=== PATIENT | female | born 2000 | race Caucasian/White ===

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

== ENCOUNTER 2019-07-10 18:43 | Inpatient (IN) | payer OTHER, MEDICAID ==
[2019-07-10] MEDS ORDERED: Lactated Ringers 1,000 ML IV ONE (20:03)
[2019-07-10] MEDS ORDERED: Carboprost Tromethamine 250 MCG/1 ML Amp IM PRN (20:03)
[2019-07-10] MEDS ORDERED: Methylergonovine 0.2 MG/1 ML Amp IM PRN (20:03)
[2019-07-10] MEDS ORDERED: Ondansetron 4 MG/2 ML SDV IVPUSH PRN (20:03)
[2019-07-10] MEDS ORDERED: Lidocaine 1% 30 ML SDV INJECT PRN (20:03)
[2019-07-10] MEDS ORDERED: Sodium Chloride 0.9% 10 ML Syringe FLUSH PRN (20:03)
[2019-07-10] MEDS ORDERED: Misoprostol 400 MCG (4 X 100 MCG TAB) RECTAL PRN (20:03)
[2019-07-10] MEDS ORDERED: Tranexamic Acid 1,000 MG in Sodium Chloride 0.9% 100 ML IV PRN (20:03)
[2019-07-10] MEDS ORDERED: Oxytocin/Normal Saline 30 UNIT/500 ML BAG IV SCH (20:15)
[2019-07-10] MEDS: Lactated Ringers 1,000 ML IV SCH ×3 (20:25→21:38)
[2019-07-10] MEDS ORDERED: fentaNYL 100 MCG/2 ML SDV ONE (20:39)
[2019-07-10] MEDS ORDERED: EPINEPHrine 1 MG/1 ML Amp ONE (20:40)
[2019-07-10] MEDS ORDERED: Sodium Bicarbonate 4.2% 2.5 MEQ/5 ML SDV ONE (20:40)
--- NOTE | 2019-07-10 20:43 | PCM.LDHP ---
L&D History of Present Illness - General Date of Service: 07/10/19 (Admit H&P) Admit Problem/Dx: Patient Status Order with Admit Dx/Problem 07/10/19 20:03 Patient Status [ADT] Routine Admission Diagnosis/Problem Admission Diagnosis/Problem Labor established 07/10/19 21:20 Yuliet is a delightful 18yo WF @ 38w2d who presents tonight is labor. Has been ulises on and off since I saw her in the clinic Sunday, and now the contractions are getting much more intense and closer together. Has had some spotting, bloody show, but no heavy bleeding. no LOF, only some vaginal mucousy discharge as usual. headache yesterday, resolved. No other pre-Eclampsia sx. no other concerns. baby active today. see episode for details. Source of Information: Patient, Family, Old Records, Provider, RN, RN Notes Reviewed, Significant Other, Other (EPIC records/ notes, episode) History Limitations: Reports: No Limitations - History of Present Illness Introduction:: as above. 18yo @ 38w2d in active labor on admit. BOWI. Baby active. prior vaginal delivery at 40w2d. Timing/Duration: Reports: minutes: (2-3, irregular yet), gradual onset, getting worse Location, : Reports: Uterus Severity: Moderate Associated Symptoms: Reports: vaginal bleeding (spotting/bloody show only), vaginal discharge - Related Data Allergies/Adverse Reactions: Allergies Allergy/AdvReac Type Severity Reaction Status Date / Time No Known Allergies Allergy Verified 07/10/19 20:17 Home Medications: Home Meds No.116/Iron/Folic/Dha [Expecta Combo Pack] 1 tab PO DAILY [History] Ferrous Sulfate 325 mg PO DAILY 07/10/19 [History] Past Medical History HEENT History: Reports: None Cardiovascular History: Reports: None Respiratory History: Reports: None Gastrointestinal History: Reports: None Genitourinary History: Reports: None SUPERVISING BAILIFF History: Reports: : 2 Para: 1 LMP (Approximate): Other OB/BYN History: prior vaginal delivery @ 40w2d Musculoskeletal History: Reports: Other (See Below) Other Musculoskeletal History: "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 Neurological History: Reports: None Psychiatric History: Reports: Anxiety, Depression, Other (See Below) Other Psychiatric History: has been on Zoloft and Prozac, not currently Endocrine/Metabolic History: Reports: None Hematologic History: Reports: None Immunologic History: Reports: None Oncologic (Cancer) History: Reports: None Dermatologic History: Reports: None - Infectious Disease History Infectious Disease History: Reports: None, Chicken Pox (as a child) - Past Surgical History Head Surgeries/Procedures: Reports: None HEENT Surgical History: Reports: Other (See Below) Other HEENT Surgeries/Procedures: 2017 wisdom teeth Cardiovascular Surgical History: Reports: None GI Surgical History: Reports: None Female Surgical History: Reports: None Musculoskeletal Surgical History: Reports: Other (See Below) (foot surgery) Other Musculoskeletal Surgeries/Procedures:: see above Social & Family History - Family History Family Medical History: Unobtainable (adopted) - Caffeine Use Caffeine Use: Reports: Soda - Alcohol Use Alcohol Use History: No Alcohol Use Comment: denies ETOH use - Recreational Drug Use Recreational Drug Use: No Recreational Drug Use Comment: denies use - Sexual History Sexual History: Reports: Barrier Contraceptives, Sexually Active Other Sexual History Comment: new partner/FOB with this . STD testing negative - Living Situation & Occupation Living situation: Reports: with Family Social History Comment: lives with adoptive parents and daughter Malgorzata. FOB for this is Erick Montiel. Involved. Here with her. H&P Review of Systems - Review of Systems: Review Of Systems: Comprehensive ROS is negative, except as noted in HPI. L&D Exam - Exam Exam: See Below - OB Specific Fundal Height In cm: 40 Movement: Active Heart Tones: Present Heart Tones per Min: 135 Heart Rate (FHR) Variability: Moderate (6-25 bmp) Presentation: Left Occiput Posterior (LOP) Estimated Weight: 8lb +/- 1/2# - Rico Score Rico Score Cervix Position: Midposition Rico Score Consistency: Soft Rico Score Effacement: >80% Rico Score Dilation: > 5 cm Rico Score Infant's Station: -1 ,0 Rico Score Total: 11 - Exam General: Alert, Oriented HEENT: Conjunctiva Clear, EOMI, Hearing Intact, Mucosa Moist & [place], Nares Patent, Pupils Equal, Pupils Reactive Neck: Supple Lungs: Clear to Auscultation, Normal Respiratory Effort Cardiovascular: Regular Rate, Regular Rhythm GI/Abdominal Exam: Normal Bowel Sounds, Soft, Non-Tender, Pelvis Stable, Distended, Mass Rectal Exam: Normal Exam Genitourinary: Normal external exam, Normal bimanual exam, Cervical dilitation ( 9cm, BBOWI, AROM carried out), Cervical fluid (AROM, large amount clear fluid), Enlarged uterus Back Exam: Normal Inspection, Full Range of Motion Extremities: Normal Inspection, Normal Range of Motion, Non-Tender, No Pedal Edema, Normal Capillary Refill Skin: Warm, Dry, Intact Neurological: Normal Speech, Normal Tone Psychiatric: Alert, Normal Affect, Normal Mood - Patient Data Lab Results Last 24 hrs: Laboratory Results - last 24 hr 07/10/19 Range/Units 19:30 WBC 10.5 H (5.0-10.0) 10^3/uL RBC 4.39 (4.2-5.4) 10^6/uL Hgb 12.3 (12.0-16.0) g/dL Hct 37.4 (37.0-47.0) % MCV 85.2 (80-100) fL MCH 28.0 (27.0-34.0) pg MCHC 32.9 L (33.0-35.0) g/dL Plt Count 158 (150-450) 10^3/uL Result Diagrams: 07/10/19 19:30 - Problem List (1) Term SNOMED Code(s): 07312550 ICD Code: Z34.90 - ENCNTR FOR SUPRVSN OF NORMAL , UNSP, UNSP TRIMESTER Status: Acute Current Visit: Yes (2) Spontaneous onset of labor SNOMED Code(s): 92090600 ICD Code: [id number] - Status: Acute Current Visit: Yes (3) Blood type A+ SNOMED Code(s): 827421793 ICD Code: Z67.10 - TYPE A BLOOD, RH POSITIVE Status: Acute Current Visit : Yes (4) Rubella immune SNOMED Code(s): 999165497 ICD Code: Z78.9 - OTHER SPECIFIED HEALTH STATUS Status: Acute Current Visit: Yes (5) Group B Streptococcus not isolated SNOMED Code(s): 213433387 ICD Code: NYY0139 - Status: Acute Current Visit: Yes (6) Bacterial vaginosis in SNOMED Code(s): 455090809009391 ICD Code: O23.599 - INFECTION OTH PRT GENITAL TRACT IN , UNSP TRIMESTER; B96.89 - OTH BACTERIAL AGENTS THE CAUSE OF DISEASES CLASSD ELSWHR Status: Acute Current Visit: Yes Problem List Initiated/Reviewed/Updated: Yes Orders Last 24hrs: Active Orders 24 hr Category Date Time Status Patient Status [ADT] Routine ADT 07/10/19 20:03 Active Communication Order [RC] ASDIRECTED Care 07/10/19 20:03 Active Heart Tones [RC] PER UNIT ROUTINE Care 07/10/19 20:03 Active Notify Provider Vital Signs OB [RC] ASDIRECTED Care 07/10/19 20:03 Active Notify Provider [RC] PRN Care 07/10/19 20:03 Active POC Labs [RC] ASDIRECTED Care 07/10/19 20:03 Active Pump Management, Intrathecal [RC] ASDIRECTED Care 07/10/19 20:08 Active Up ad Linda [RC] ASDIRECTED Care 07/10/19 20:03 Active Vital Signs [RC] PER UNIT ROUTINE Care 07/10/19 20:03 Active Acetaminophen [Tylenol] Med 07/10/19 20:03 Active 650 mg PO Q4H PRN Carboprost Tromethamine [Hemabate DS] Med 07/10/19 20:03 Active 250 mcg IM ASDIRECTED PRN Lactated Ringers [Ringers, Lactated] 1,000 ml Med 07/10/19 20:15 Active IV ASDIRECTED Lactated Ringers [Ringers, Lactated] 1,000 ml Med 07/10/19 20:03 Active IV BOLUS Lidocaine 1% [Xylocaine-MPF 1%] Med 07/10/19 20:03 Active 30 ml INJECT ASDIRECTED PRN Methylergonovine [Methergine] Med 07/10/19 20:03 Active 0.2 mg IM ASDIRECTED PRN Ondansetron [Zofran] Med 07/10/19 20:03 Active 4 mg IVPUSH Q4H PRN Oxytocin/Normal Saline [Pitocin in NS 30 UNIT/500 ML] Med 07/10/19 20:15 Active 30 unit in 500 ml IV TITRATE Sodium Chloride 0.9% [Saline Flush] Med 02/13/20 20:03 Active 10 ml FLUSH ASDIRECTED PRN Tranexamic Acid [Cyklokapron] 1,000 mg Med 07/10/19 20:03 Active Sodium Chloride 0.9% [Normal Saline] 100 ml IV ONETIME miSOPROStoL [Cytotec] Med 07/10/19 20:03 Active 800 mcg RECTAL ASDIRECTED PRN Saline Lock Insert [OM.PC] Routine Oth 07/10/19 20:03 Ordered Resuscitation Status Routine Resus Stat 07/10/19 20:03 Ordered Medication Orders Acetaminophen (Tylenol) 650 mg PO Q4H PRN PRN Reason: Pain (Mild 1-3) and fever Carboprost Tromethamine (Hemabate Ds) 250 mcg IM ASDIRECTED PRN PRN Reason: HEMORRHAGE Lactated Ringer's (Ringers, Lactated) 1,000 mls @ 500 mls/hr IV BOLUS ONE Stop: 07/10/19 22:02 Lactated Ringer's (Ringers, Lactated) 1,000 mls @ 125 mls/hr IV ASDIRECTED MITCHELL Oxytocin/Sodium Chloride (Pitocin In Ns 30 Unit/500 Ml) 30 unit in 500 mls @ 2 mls/hr IV TITRATE MITCHELL; Protocol Tranexamic Acid 1,000 mg/ (Sodium Chloride) 110 mls @ 660 mls/hr IV ONETIME PRN PRN Reason: Bleeding Lidocaine HCl (Xylocaine-Mpf 1%) 30 ml INJECT ASDIRECTED PRN PRN Reason: Perineal Repair Methylergonovine Maleate (Methergine) 0.2 mg IM ASDIRECTED PRN PRN Reason: Hemorrhage Misoprostol (Cytotec) 800 mcg RECTAL ASDIRECTED PRN PRN Reason: Hemorrhage Ondansetron HCl (Zofran) 4 mg IVPUSH Q4H PRN PRN Reason: Nausea/Vomiting Sodium Chloride (Saline Flush) 10 ml FLUSH ASDIRECTED PRN PRN Reason: Keep Vein Open Assessment/Plan Comment:: Assessment" Yuliet is a delightful 18yo @ 38w2d who presents with spontaneous onset of labor. BOWI Blood type A+ Rubella immune GBS negative HX BV during treated X 2 Plan: admit with routine orders and cares planning intrathecal likely AROM when able/ready if no SROM continue to follow closely in labor and monitor status. all questions answered hmb Addendum: 2139: just checked by nursing staff, OB nurse Tabby cervix 9-9 1/2cm dilated. heart tracings reassuring, seeing early decels likely due to head compression. has intrathecal in place with excellent block. will allow her to continue to labor down. set up and ready for anticipated vaginal delivery. suspect this baby is larger than her last. hmb
--- NOTE | 2019-07-10 21:03 | PCM.SN ---
- Free Text/Narrative Note: Intrathecal.Sitting position, sterile prep and drape. 1% lidociane w bicarb for skinwheal to L2 L3 interspace. Introducer, 24 ga pencan x 1.Pos CSf, neg heme, neg parasthesia. 0.1 ml Pf 1:1000 epi, 20 mcg pf sufenta, 30 mcg pf fentanyl, 0.4 ml pf NS and 6 mg of 0.75% pf bupivacaine injected after CSf aspiration. Pt to L lateral position. Procedure time 2039 to 2109
--- NOTE | 2019-07-10 23:18 | PCM.DEL ---
L & D Note - General Info Date of Service: 07/10/19 (Time of Delivery: 2249) Mother's Due Date: 07/22/19 (38w2d) - Delivery Note Labor: Spontaneous, Augmented by ARM Delivery Outcome: Livebirth Delivery Method: Spontaneous Vaginal Delivery-Single Infant Delivery Mode: Spontaneous Presentation: Right Occiput Anterior (DEANDRE) Nuchal Cord: None (but posterio nuchal hand/arm noted. ) Anesthesia Type: Intrathecal Amniotic Fluid Description: Clear Episiotomy Type: None Laceration: 2nd Degree Suture type: Vicryl Suture size: 2-0 Placenta: Intact, Expressed Cord: 3 Vessels Estimated Blood Loss: 200 (minimal blood loss) Resuscitation Needed: No [place]: Suctioned, Bulb Syringe, Stimulated, Warmed, Brant Used Provider: Ambar Benito Score 1 min: 8 Score 5 min: 9 Second Stage Interventions: Reports: Laboring Down, Pushing Effectively, Pushing , McRobert's Position, Pushing, Pulls Own Legs Back Delivery Comments (Free Text/Narrative):: Yuliet had an excellent block with her intrathecal. Was allowed to labor down until complete and +2 station. Pushed effectively and was while pushing in Lencho position. vertex delivered with nuchal hand/arm noted posteriorly resulting in a small posterior midline 2nd degree tear to perineum. ' remainder of the baby delivered without difficulty with strong cry at . dried, stimulated and suctioned and placed on mother's chest for skin to skin contact, bonding and nursing. APGARs 8 & 9 BW 3440g/ 7lb 9oz cord doubly clamped by me,then cut by FOB cord blood obtained. placenta intact, 3VC noted 2nd degree midline lac repaired in standard fashion with excellent results EBL <200cc fundus firm with pitocin infusing per protocol. mom and baby stable, doing well will follow routine nursery and orders and cares. [facility] - General Info Date of Service: 07/10/19 (Delivery time 2249) Functional Status: Reports: Pain Controlled - Review of Systems General: Reports: No Symptoms HEENT: Reports: No Symptoms Pulmonary: Reports: No Symptoms Cardiovascular: Reports: No Symptoms Gastrointestinal: Reports: No Symptoms Genitourinary: Reports: No Symptoms Musculoskeletal: Reports: No Symptoms Skin: Reports: No Symptoms Neurological: Reports: No Symptoms Psychiatric: Reports: No Symptoms - Patient Data Vitals - Most Recent: Last Vital Signs Temp 97.6 F 07/10/19 18:50 Pulse 82 07/10/19 21:25 Resp 16 07/10/19 21:25 BP 93/46 L 07/10/19 21:25 Pulse Ox Weight - Most Recent: 199 lb Lab Results Last 24 Hours: Laboratory Results - last 24 hr 07/10/19 Range/Units 19:30 WBC 10.5 H (5.0-10.0) 10^3/uL RBC 4.39 (4.2-5.4) 10^6/uL Hgb 12.3 (12.0-16.0) g/dL Hct 37.4 (37.0-47.0) % MCV 85.2 (80-100) fL MCH 28.0 (27.0-34.0) pg MCHC 32.9 L (33.0-35.0) g/dL Plt Count 158 (150-450) 10^3/uL Med Orders - Current: Current Medications Acetaminophen (Tylenol) 650 mg PO Q4H PRN PRN Reason: Pain (Mild 1-3) and fever Carboprost Tromethamine (Hemabate Ds) 250 mcg IM ASDIRECTED PRN PRN Reason: HEMORRHAGE Lactated Ringer's (Ringers, Lactated) 1,000 mls @ 125 mls/hr IV ASDIRECTED MITCHELL Last Admin: 07/10/19 21:38 Dose: 125 mls/hr Oxytocin/Sodium Chloride (Pitocin In Ns 30 Unit/500 Ml) 30 unit in 500 mls @ 2 mls/hr IV TITRATE MITCHELL; Protocol Last Titration: 07/10/19 23:07 Dose: 250 mls/hr Tranexamic Acid 1,000 mg/ (Sodium Chloride) 110 mls @ 660 mls/hr IV ONETIME PRN PRN Reason: Bleeding Lidocaine HCl (Xylocaine-Mpf 1%) 30 ml INJECT ASDIRECTED PRN PRN Reason: Perineal Repair Methylergonovine Maleate (Methergine) 0.2 mg IM ASDIRECTED PRN PRN Reason: Hemorrhage Misoprostol (Cytotec) 800 mcg RECTAL ASDIRECTED PRN PRN Reason: Hemorrhage Ondansetron HCl (Zofran) 4 mg IVPUSH Q4H PRN PRN Reason: Nausea/Vomiting Last Admin: 07/10/19 20:39 Dose: 4 mg Sodium Chloride (Saline Flush) 10 ml FLUSH ASDIRECTED PRN PRN Reason: Keep Vein Open Discontinued Medications Epinephrine HCl (Adrenalin) Confirm Administered Dose 1 mg .ROUTE .STK-MED ONE Stop: 07/10/19 20:41 Fentanyl (Sublimaze) Confirm Administered Dose 100 mcg .ROUTE .STK-MED ONE Stop: 07/10/19 20:40 Lactated Ringer's (Ringers, Lactated) 1,000 mls @ 500 mls/hr IV BOLUS ONE Stop: 07/10/19 22:02 Sodium Bicarbonate (Sodium Bicarbonate 4.2%) Confirm Administered Dose 2.5 meq .ROUTE .STK-MED ONE Stop: 07/10/19 20:41 Sufentanil Citrate (Sufenta) Confirm Administered Dose 50 mcg .ROUTE .STK-MED ONE Stop: 07/10/19 20:41 - Exam General: Alert, Oriented HEENT: Pupils Equal, Pupils Reactive, EOMI, Mucous Membr. Moist/[place] Neck: Supple Lungs: Clear to Auscultation, Normal Respiratory Effort Cardiovascular: Regular Rate, Regular Rhythm Back Exam: Normal Inspection, Full Range of Motion Extremities: Normal Inspection, Normal Range of Motion, Non-Tender, No Pedal Edema, Normal Capillary Refill Skin: Warm, Dry, Intact Neurological: No New Focal Deficit, Other (intrathecal in place at this time) Psy/Mental Status: Alert, Normal Affect, Normal Mood - Problem List & Annotations (1) Term SNOMED Code(s): 98438522 Code(s): Z34.90 - ENCNTR FOR SUPRVSN OF NORMAL , UNSP, UNSP TRIMESTER Status: Acute Current Visit: Yes (2) Spontaneous onset of labor SNOMED Code(s): 63617255 Code(s): CCG4827 - Status: Acute Current Visit: Yes (3) Blood type A+ SNOMED Code(s): 313304466 Code(s): Z67.10 - TYPE A BLOOD, RH POSITIVE Status: Acute Current Visit: Yes (4) Rubella immune SNOMED Code(s): 959481273 Code(s): Z78.9 - OTHER SPECIFIED HEALTH STATUS Status: Acute Current Visit: Yes (5) Group B Streptococcus not isolated SNOMED Code(s): 498808715 Code(s): UNB2810 - Status: Acute Current Visit: Yes (6) Bacterial vaginosis in SNOMED Code(s): 543373821776870 Code(s): O23.599 - INFECTION OTH PRT GENITAL TRACT IN , UNSP TRIMESTER; B96.89 - OTH BACTERIAL AGENTS THE CAUSE OF DISEASES CLASSD ELSWHR Status: Acute Current Visit: Yes - Problem List Review Problem List Initiated/Reviewed/Updated: Yes - My Orders Last 24 Hours: My Active Orders 07/10/19 20:03 Patient Status [ADT] Routine Communication Order [RC] ASDIRECTED Heart Tones [RC] PER UNIT ROUTINE Notify Provider Vital Signs OB [RC] ASDIRECTED Notify Provider [RC] PRN POC Labs [RC] ASDIRECTED Up ad Linda [RC] ASDIRECTED Vital Signs [RC] PER UNIT ROUTINE Acetaminophen [Tylenol] 650 mg PO Q4H PRN Carboprost Tromethamine [Hemabate DS] 250 mcg IM ASDIRECTED PRN Lidocaine 1% [Xylocaine-MPF 1%] 30 ml INJECT ASDIRECTED PRN Methylergonovine [Methergine] 0.2 mg IM ASDIRECTED PRN Ondansetron [Zofran] 4 mg IVPUSH Q4H PRN Sodium Chloride 0.9% [Saline Flush] 10 ml FLUSH ASDIRECTED PRN Tranexamic Acid [Cyklokapron] 1,000 mg Sodium Chloride 0.9% [Normal Saline] 100 ml IV ONETIME miSOPROStoL [Cytotec] 800 mcg RECTAL ASDIRECTED PRN Saline Lock Insert [OM.PC] Routine Resuscitation Status Routine 07/10/19 20:15 Lactated Ringers [Ringers, Lactated] 1,000 ml IV ASDIRECTED Oxytocin/Normal Saline [Pitocin in NS 30 UNIT/500 ML] 30 unit in 500 ml IV TITRATE - Plan Plan:: Assessment" Yuliet is a delightful 18yo @ 38w2d who presents with spontaneous onset of labor. BOWI Blood type A+ Rubella immune GBS negative HX BV during treated X 2 Plan: admit with routine orders and cares planning intrathecal likely AROM when able/ready if no SROM continue to follow closely in labor and monitor status. all questions answered hmb Addendum: 2139: just checked by nursing staff, OB nurse Tabby cervix 9-9 1/2cm dilated. heart tracings reassuring, seeing early decels likely due to head compression. has intrathecal in place with excellent block. will allow her to continue to labor down. set up and ready for anticipated vaginal delivery. suspect this baby is larger than her last. hmb DELIVERY: viable male infant by with 2nd degree lac @ 2250 without complications. APGARs 8 & 9 BW 3440g/ 7lb 9oz see notes for details. hmb
[2019-07-10] MEDS ORDERED: Zolpidem 5 MG Tab PO PRN (23:27)
[2019-07-10] MEDS ORDERED: Benzocaine/Menthol 20%-0.5% Spray 56 GM Canister TOP PRN (23:27)
[2019-07-10] MEDS ORDERED: Simethicone 80 MG Tab.Chew PO PRN (23:27)
[2019-07-11] MEDS: Ibuprofen 800 MG Tab PO PRN ×3 (00:09→16:45)
[2019-07-11] MEDS: Acetaminophen 325 MG Tab PO PRN ×5 (00:47→23:41)
[2019-07-11] MEDS: Docusate Sodium 100 MG Cap PO PRN ×2 (08:34→19:34)
[2019-07-11] MEDS: Prenatal Multivitamin with Calcium/Folic Acid/Iron Tab PO SCH (08:34)
[2019-07-11] MEDS ORDERED: FLUoxetine 10 MG Cap PO ONE (21:49)
--- NOTE | 2019-07-11 22:00 | PCM.PNPP ---
- General Info Date of Service: 07/11/19 (PP #1) Admission Dx/Problem (Free Text): vaginal delivery viable male Subjective Update: doing well voiding, eating, ambulating. hasn't had a BM yet. wishes to start her antidepressant again. fluoxetine 20mg daily. decided not to nurse right now. hmb Functional Status: Reports: Pain Controlled - Review of Systems General: Reports: No Symptoms HEENT: Reports: No Symptoms Pulmonary: Reports: No Symptoms Cardiovascular: Reports: No Symptoms Gastrointestinal: Reports: No Symptoms Genitourinary: Reports: No Symptoms Musculoskeletal: Reports: No Symptoms Skin: Reports: No Symptoms Neurological: Reports: No Symptoms Psychiatric: Reports: No Symptoms - General Info Date of Service: 07/11/19 (PPD #1) - Patient Data Vital Signs - Most Recent: Last Vital Signs Temp 98.2 F 07/11/19 09:27 Pulse 92 07/11/19 09:27 Resp 16 07/11/19 09:27 BP 126/70 07/11/19 09:27 Pulse Ox 100 07/11/19 09:27 Weight - Most Recent: 199 lb I&O - Last 24 Hours: Intake & Output 07/11/19 07/11/19 07/11/19 06:59 14:59 22:59 Output Total 250 Balance -250 Med Orders - Current: Current Medications Acetaminophen (Tylenol) 650 mg PO Q4H PRN PRN Reason: Pain (Mild 1-3) and fever Last Admin: 07/11/19 19:34 Dose: 650 mg Benzocaine/Menthol (Dermoplast Pain Relief [place]) 0 gm TOP Q4H PRN PRN Reason: Perineal comfort measures Last Admin: 07/11/19 00:08 Dose: 1 spray Carboprost Tromethamine (Hemabate Ds) 250 mcg IM ASDIRECTED PRN PRN Reason: HEMORRHAGE Docusate Sodium (Colace) 100 mg PO BID PRN PRN Reason: Constipation Last Admin: 07/11/19 19:34 Dose: 100 mg Fluoxetine HCl (Prozac) 20 mg PO DAILY MITCHELL Lactated Ringer's (Ringers, Lactated) 1,000 mls @ 125 mls/hr IV ASDIRECTED MITCHELL Last Admin: 07/10/19 21:38 Dose: 125 mls/hr Oxytocin/Sodium Chloride (Pitocin In Ns 30 Unit/500 Ml) 30 unit in 500 mls @ 2 mls/hr IV TITRATE MITCHELL; Protocol Last Titration: 07/11/19 01:45 Dose: 0 mls/hr Tranexamic Acid 1,000 mg/ (Sodium Chloride) 110 mls @ 660 mls/hr IV ONETIME PRN PRN Reason: Bleeding Ibuprofen (Motrin) 800 mg PO Q8H PRN PRN Reason: Mild Pain or Fever Last Admin: 07/11/19 16:45 Dose: 800 mg Lidocaine HCl (Xylocaine-Mpf 1%) 30 ml INJECT ASDIRECTED PRN PRN Reason: Perineal Repair Methylergonovine Maleate (Methergine) 0.2 mg IM ASDIRECTED PRN PRN Reason: Hemorrhage Misoprostol (Cytotec) 800 mcg RECTAL ASDIRECTED PRN PRN Reason: Hemorrhage Ondansetron HCl (Zofran) 4 mg IVPUSH Q4H PRN PRN Reason: Nausea/Vomiting Last Admin: 07/10/19 20:39 Dose: 4 mg Prenat Multivit/Toco/Iron/Folic Ac ( Plus Iron) 1 each PO DAILY MITCHELL Last Admin: 07/11/19 08:34 Dose: 1 each Simethicone (Simethicone) 80 mg PO Q4H PRN PRN Reason: Gas Sodium Chloride (Saline Flush) 10 ml FLUSH ASDIRECTED PRN PRN Reason: Keep Vein Open Zolpidem Tartrate (Ambien) 5 mg PO BEDTIME PRN PRN Reason: Insomnia Discontinued Medications Epinephrine HCl (Adrenalin) Confirm Administered Dose 1 mg .ROUTE .STK-MED ONE Stop: 07/10/19 20:41 Last Admin: 07/11/19 03:35 Dose: Not Given Fentanyl (Sublimaze) Confirm Administered Dose 100 mcg .ROUTE .STK-MED ONE Stop: 07/10/19 20:40 Last Admin: 07/11/19 03:34 Dose: Not Given Fluoxetine HCl (Prozac) 20 mg PO ONETIME ONE Stop: 07/11/19 21:50 Lactated Ringer's (Ringers, Lactated) 1,000 mls @ 500 mls/hr IV BOLUS ONE Stop: 07/10/19 22:02 Last Admin: 07/11/19 03:34 Dose: Not Given Sodium Bicarbonate (Sodium Bicarbonate 4.2%) Confirm Administered Dose 2.5 meq .ROUTE .STK-MED ONE Stop: 07/10/19 20:41 Last Admin: 07/11/19 03:35 Dose: Not Given Sufentanil Citrate (Sufenta) Confirm Administered Dose 50 mcg .ROUTE .STK-MED ONE Stop: 07/10/19 20:41 Last Admin: 07/11/19 03:35 Dose: Not Given - Interaction Disposition, : Potter at Bedside Interaction: Holding Infant Feeding: Bottle Fed Support Person: Significant Other - Recovery Exam Fundal Tone: Firm Fundal Level: At Umbilicus Fundal Placement: Midline Lochia Amount: Scant, Small Lochia Color: Rubra/Red Perineum Description: Intact, Minimal Bruising/Swelling Other Perinuem Description: left lower labia bruising, no more swelling than rest of the labia Episiotomy/Laceration: Approximated Bladder Status: Nonpalpable Urinary Elimination: Straight Catheterization - Exam General: Alert, Oriented HEENT: Pupils Equal, Pupils Reactive, EOMI Neck: Supple Lungs: Clear to Auscultation, Normal Respiratory Effort Cardiovascular: Regular Rate, Regular Rhythm GI/Abdominal Exam: Normal Bowel Sounds Extremities: Normal Inspection Skin: Warm, Dry, Intact Neurological: No New Focal Deficit Psy/Mental Status: Alert, Normal Affect, Normal Mood - Problem List & Annotations (1) Term SNOMED Code(s): 03124495 Code(s): Z34.90 - ENCNTR FOR SUPRVSN OF NORMAL , UNSP, UNSP TRIMESTER Status: Acute Current Visit: Yes (2) Spontaneous onset of labor SNOMED Code(s): 74757647 Code(s): DBB0538 - Status: Acute Current Visit: Yes (3) Blood type A+ SNOMED Code(s): 714286200 Code(s): Z67.10 - TYPE A BLOOD, RH POSITIVE Status: Acute Current Visit: Yes (4) Rubella immune SNOMED Code(s): 981461357 Code(s): Z78.9 - OTHER SPECIFIED HEALTH STATUS Status: Acute Current Visit: Yes (5) Group B Streptococcus not isolated SNOMED Code(s): 017693023 Code(s): PQG5537 - Status: Acute Current Visit: Yes (6) Bacterial vaginosis in SNOMED Code(s): 349282637108530 Code(s): O23.599 - INFECTION OTH PRT GENITAL TRACT IN , UNSP TRIMESTER; B96.89 - OTH BACTERIAL AGENTS THE CAUSE OF DISEASES CLASSD ELSWHR Status: Acute Current Visit: Yes - Problem List Review Problem List Initiated/Reviewed/Updated: Yes - My Orders Last 24 Hours: My Active Orders 07/10/19 23:00 Insert Urinary Catheter [OM.PC] ONETIME 07/10/19 23:27 Consult to Slot Floor Person [CONS] Routine Benzocaine/Menthol [Dermoplast Pain Relief [place]] See Dose Instructions TOP Q4H PRN Docusate Sodium [Colace] 100 mg PO BID PRN Ibuprofen [Motrin] 800 mg PO Q8H PRN Simethicone 80 mg PO Q4H PRN Zolpidem [Ambien] 5 mg PO BEDTIME PRN Assess Lochia [WOMSER] Per Unit Routine Assess Uterine Involution [WOMSER] Per Unit Routine Breast Pump [WOMSER] Per Unit Routine Ice Therapy [OM.PC] Per Unit Routine Perineal Care [OM.PC] Per Unit Routine Sitz Bath [OM.PC] Per Unit Routine 07/11/19 09:00 Vit with Ca/FA/Iron [ Plus Iron] 1 each PO DAILY 07/11/19 22:00 FLUoxetine [PROzac] 20 mg PO DAILY - Plan Plan:: Assessment" Yuliet is a delightful 18yo @ 38w2d who presents with spontaneous onset of labor. BOWI Blood type A+ Rubella immune GBS negative HX BV during treated X 2 Plan: admit with routine orders and cares planning intrathecal likely AROM when able/ready if no SROM continue to follow closely in labor and monitor status. all questions answered b Addendum: [id number]: just checked by nursing staff, OB nurse Tabby cervix 9-9 1/2cm dilated. heart tracings reassuring, seeing early decels likely due to head compression. has intrathecal in place with excellent block. will allow her to continue to labor down. set up and ready for anticipated vaginal delivery. suspect this baby is larger than her last. [facility] DOS: 07-11-2019 PPD #1 doing well restarted her fluoxetine 20mg daily. had minimal blood loss with delivery, and light flow, so cancelled her hgb for a.m. as admit was >[address] Mcgee see and discharge tomorrow. all questions answered. dangelo
[2019-07-11] MEDS: FLUoxetine 10 MG Cap PO SCH (22:11)
[2019-07-12] MEDS: Ibuprofen 800 MG Tab PO PRN ×2 (00:48→09:16)
[2019-07-12] MEDS: Docusate Sodium 100 MG Cap PO PRN (09:16)
[2019-07-12] MEDS: Prenatal Multivitamin with Calcium/Folic Acid/Iron Tab PO SCH (09:16)
[2019-07-12] MEDS: FLUoxetine 10 MG Cap PO SCH (09:16)
--- NOTE | 2019-07-12 11:32 | PCM.PNPP ---
- General Info Date of Service: 07/12/19 (PPD #2 S/P ) Functional Status: Reports: Pain Controlled, Tolerating Diet, Ambulating, Urinating - Review of Systems General: Reports: No Symptoms HEENT: Reports: No Symptoms Pulmonary: Reports: No Symptoms Cardiovascular: Reports: No Symptoms Gastrointestinal: Reports: No Symptoms Genitourinary: Reports: No Symptoms Musculoskeletal: Reports: No Symptoms Skin: Reports: No Symptoms Neurological: Reports: No Symptoms Psychiatric: Reports: No Symptoms - General Info Date of Service: 07/12/19 (PPD # 2 S/P ) - Patient Data Vital Signs - Most Recent: Last Vital Signs Temp 96.9 F 07/12/19 07:42 Pulse 72 07/12/19 07:42 Resp 16 07/12/19 07:42 BP 106/62 07/12/19 07:42 Pulse Ox 99 07/12/19 07:42 Weight - Most Recent: 199 lb I&O - Last 24 Hours: Intake & Output 07/11/19 07/12/19 07/12/19 22:59 06:59 14:59 Intake Total 1200 Balance 1200 Med Orders - Current: Current Medications Acetaminophen (Tylenol) 650 mg PO Q4H PRN PRN Reason: Pain (Mild 1-3) and fever Last Admin: 07/11/19 23:41 Dose: 650 mg Benzocaine/Menthol (Dermoplast Pain Relief [place]) 0 gm TOP Q4H PRN PRN Reason: Perineal comfort measures Last Admin: 07/11/19 00:08 Dose: 1 spray Carboprost Tromethamine (Hemabate Ds) 250 mcg IM ASDIRECTED PRN PRN Reason: HEMORRHAGE Docusate Sodium (Colace) 100 mg PO BID PRN PRN Reason: Constipation Last Admin: 07/12/19 09:16 Dose: 100 mg Fluoxetine HCl (Prozac) 20 mg PO DAILY MITCHELL Last Admin: 07/12/19 09:16 Dose: 20 mg Lactated Ringer's (Ringers, Lactated) 1,000 mls @ 125 mls/hr IV ASDIRECTED MITCHELL Last Admin: 07/10/19 21:38 Dose: 125 mls/hr Oxytocin/Sodium Chloride (Pitocin In Ns 30 Unit/500 Ml) 30 unit in 500 mls @ 2 mls/hr IV TITRATE MITCHELL; Protocol Last Titration: 07/11/19 01:45 Dose: 0 mls/hr Tranexamic Acid 1,000 mg/ (Sodium Chloride) 110 mls @ 660 mls/hr IV ONETIME PRN PRN Reason: Bleeding Ibuprofen (Motrin) 800 mg PO Q8H PRN PRN Reason: Mild Pain or Fever Last Admin: 07/12/19 09:16 Dose: 800 mg Lidocaine HCl (Xylocaine-Mpf 1%) 30 ml INJECT ASDIRECTED PRN PRN Reason: Perineal Repair Methylergonovine Maleate (Methergine) 0.2 mg IM ASDIRECTED PRN PRN Reason: Hemorrhage Misoprostol (Cytotec) 800 mcg RECTAL ASDIRECTED PRN PRN Reason: Hemorrhage Ondansetron HCl (Zofran) 4 mg IVPUSH Q4H PRN PRN Reason: Nausea/Vomiting Last Admin: 07/10/19 20:39 Dose: 4 mg Prenat Multivit/Associate Chemist/Iron/Folic Ac ( Plus Iron) 1 each PO DAILY MITCHELL Last Admin: 07/12/19 09:16 Dose: 1 each Simethicone (Simethicone) 80 mg PO Q4H PRN PRN Reason: Gas Sodium Chloride (Saline Flush) 10 ml FLUSH ASDIRECTED PRN PRN Reason: Keep Vein Open Zolpidem Tartrate (Ambien) 5 mg PO BEDTIME PRN PRN Reason: Insomnia Discontinued Medications Epinephrine HCl (Adrenalin) Confirm Administered Dose 1 mg .ROUTE .STK-MED ONE Stop: 07/10/19 20:41 Last Admin: 07/11/19 03:35 Dose: Not Given Fentanyl (Sublimaze) Confirm Administered Dose 100 mcg .ROUTE .STK-MED ONE Stop: 07/10/19 20:40 Last Admin: 07/11/19 03:34 Dose: Not Given Fluoxetine HCl (Prozac) 20 mg PO ONETIME ONE Stop: 07/11/19 21:50 Last Admin: 07/12/19 05:30 Dose: Not Given Lactated Ringer's (Ringers, Lactated) 1,000 mls @ 500 mls/hr IV BOLUS ONE Stop: 07/10/19 22:02 Last Admin: 07/11/19 03:34 Dose: Not Given Sodium Bicarbonate (Sodium Bicarbonate 4.2%) Confirm Administered Dose 2.5 meq .ROUTE .STK-MED ONE Stop: 07/10/19 20:41 Last Admin: 07/11/19 03:35 Dose: Not Given Sufentanil Citrate (Sufenta) Confirm Administered Dose 50 mcg .ROUTE .STK-MED ONE Stop: 07/10/19 20:41 Last Admin: 07/11/19 03:35 Dose: Not Given - Infant Interaction Disposition, : Adams at Bedside Infant Interaction: Holding Feeding: Bottle Fed Support Person: Significant Other - Recovery Exam Fundal Tone: Firm Fundal Level: 2 Fingerbreadths Below Umbilicus Fundal Placement: Midline Lochia Amount: Scant Lochia Color: Rubra/Red Perineum Description: Intact, Minimal Bruising/Swelling Other Perinuem Description: left lower labia bruising, no more swelling than rest of the labia Episiotomy/Laceration: Approximated Bladder Status: Nonpalpable, Voiding Urinary Elimination: Straight Catheterization - Exam General: Alert, Oriented, Cooperative, No Acute Distress HEENT: Pupils Equal, Pupils Reactive, EOMI, Mucous Membr. Moist/[place] Neck: Supple Lungs: Clear to Auscultation, Normal Respiratory Effort Cardiovascular: Regular Rate, Regular Rhythm, No Murmurs GI/Abdominal Exam: Normal Bowel Sounds, Soft, Non-Tender, No Distention Extremities: Normal Inspection, Normal Range of Motion, Non-Tender, No Pedal Edema Skin: Warm, Dry, Intact Neurological: No New Focal Deficit Psy/Mental Status: Alert, Normal Affect, Normal Mood - Problem List Review Problem List Initiated/Reviewed/Updated: Yes - Assessment Assessment:: PPD # 2 S/P Doing well. - Plan Plan:: PLAN: 1. Discharge to home. 2. Follow-up next week with Dr. Benito. 3. Ibuprofen for pain control. 4. Continue fluoxetine 20mg daily. 5. All questions answered.
--- NOTE | 2019-07-12 13:01 | DISCH ---
INDICATION FOR ADMISSION: Ms. Nunez is a 18-year-old, 2, para 1-0-0-1 female, who at 38-2/7 weeks' gestation presented to Labor and Delivery in labor. She had increasing force and frequency of contractions. She was uncomfortable, so intrathecal anesthesia was given. When she was 9 cm dilated, artificial rupture of membranes occurred with clear fluid noted. When she got to complete, she started pushing and she had a normal spontaneous vaginal delivery of a viable male weighing 7 pounds 9 ounces with score of 8 at 1 minute, 9 at 5 minutes over a second-degree midline perineal laceration that was repaired without difficulty. The patient recovered and the went to the nursery. No complications occurred throughout her hospital stay. She was afebrile. Vital signs are stable. She tolerated her diet well and ambulated quite well. She had minimal lochia. She was discharged home on day #2. LABORATORY AND DIAGNOSTIC STUDIES: WBC 10.5, hemoglobin 12.3, hematocrit 37.4, platelet count 158,000. DISCHARGE INSTRUCTIONS: 1. Discharged to home. 2. Follow up with Dr. Benito next week for well check with baby. 3. No douching, tampons, or intercourse for 6 weeks. 4. Discharge instructions including activity, followup, medications, diet and wound care were discussed with the patient. She understands these and is willing to comply with these. 5. Ibuprofen 800 mg 1 tablet t.i.d. p.r.n. for pain. DISCHARGE DIAGNOSES: 1. 38-2/7 weeks intrauterine . 2. Active labor. 3. Artificial rupture of membrane, clear fluid. 4. Normal spontaneous vaginal delivery of a viable male weighing 7 pounds 9 ounces with score of 8 at 1 minute, 9 at 5 minutes over a second-degree midline perineal laceration that was repaired without difficulty. 5. Intrathecal anesthesia. 6. History of bacterial vaginosis during treated twice. [facility][id number] MTDD
[2019-07-12] MEDS ORDERED: Sodium Bicarbonate 4.2% 2.5 MEQ/5 ML SDV ONE (13:19)
[2019-07-12] MEDS ORDERED: EPINEPHrine 1 MG/1 ML Amp ONE (13:19)
[2019-07-12] MEDS ORDERED: fentaNYL 100 MCG/2 ML SDV ITHECAL ONE (13:19)
== END 2019-07-12 13:20 | disposition home or self-care (01) | DRG 807 ==
LOC: DL.OBCHECK 18:43 → DL.OB 20:03 → UNDOADMIN 20:03 → DL.OB 22:50
PROVIDERS: ADMIT Family Medicine; ATTEND Family Medicine
PROC: 10E0XZZ Delivery of Products of Conception, External Approach (ICD-10-PCS; principal; 2019-07-10)
PROC: 0KQM0ZZ Repair Perineum Muscle, Open Approach (ICD-10-PCS; 2019-07-10)
PROC: 10907ZC Drainage of Amniotic Fluid, Therapeutic from Products of Conception, Via Natural or Artificial Opening (ICD-10-PCS; 2019-07-10)
PROC: 3E0R3BZ Introduction of Anesthetic Agent into Spinal Canal, Percutaneous Approach (ICD-10-PCS; 2019-07-10)
DX: O23.593 Infection of other part of genital tract in pregnancy, third trimester (principal); Z37.0 Single live birth; Z3A.38 38 weeks gestation of pregnancy; Z79.899 Other long term (current) drug therapy; O70.1 Second degree perineal laceration during delivery; B96.89 Other specified bacterial agents as the cause of diseases classified elsewhere
CPT/HCPCS: 01967; 36415; 51701; 59409; 85027; A9270-GY; J0171; J2405; J2590; J3010; J7120